=== PATIENT | male | born 1935 | race Caucasian/White ===

== ENCOUNTER 2016-07-09 02:11 | Inpatient (IN) | payer MEDICARE, OTHER ==
[~2016-07-09] VITALS: Ht 167.6 cm; Wt 70.8 kg
[2016-07-09] MEDS ORDERED: SODIUM CHLORIDE 250 ML IV PRN (02:25)
[2016-07-09] MEDS ORDERED: SODIUM CHLORIDE FLUSH 10 ML SYR IV PRN (02:25)
[2016-07-09] MEDS ORDERED: ONDANSETRON 2 MG/ML (Z0FRAN) 2 ML VIAL IV ONE ×2 (02:25→05:15)
[2016-07-09] MEDS ORDERED: SODIUM CHLORIDE FLUSH 3 ML SYR IV PRN (02:25)
--- NOTE | 2016-07-09 02:58 | NUR ---
PRIOR TO ARRIVAL PT WAS C/O RT ELBOW AND WRIST PAIN FROM FALL. PT NOW C/O GENERAL MALAISE AND SORENESS 08/06. PT IS ALERT AND COOPERATIVE- AT TIMES PT SEEMS TO CONTRADICT HIMSELF WHEN ANSWERING QUESTIONS.
--- NOTE | 2016-07-09 03:02 | NUR ---
PT IS WARM TO THE TOUCH.
[2016-07-09 03:29] LABS: ALBUMIN 4.6 g/dL (3.4-5.0); ALKALINE PHOSPHATASE 119 U/L (38-126); ANION GAP 17.9 MEQ/L (3-15); BUN/CREATININE RATIO 18 (10-20); CREATINE KINASE 62 U/L (55-170); MAGNESIUM* 1.4 mg/dL (1.6-2.3)
[2016-07-09 03:39] LABS: BASOPHILS % (AUTO) 0 % (0-2); EOSINOPHILS % (AUTO) 0 % (0-4); LYMPHOCYTES # (AUTO) 0.8 X10^3; MEAN CORPUSCULAR HGB CONC 34.3 g/dL (31.0-37.0); MEAN CORPUSCULAR VOLUME 97 FL (80-100); MEAN PLATELET VOLUME 12.2 FL (6.0-9.5); MONOCYTES # (AUTO) 0.3 X10^3; MONOCYTES % (AUTO) 5 % (3-11); NEUTROPHILS # (AUTO) 5.3 X10^3; NEUTROPHILS % (AUTO) 82 % (51-67); PLATELET COUNT 94 10^3uL (150-450); WHITE BLOOD COUNT 6.41 10^3uL (4.0-11.0)
[2016-07-09 03:43] LABS: MEAN CORPUSCULAR HEMOGLOBIN 33.3 PG (26.0-34.0)
[2016-07-09 03:44] LABS: BILIRUBIN,URINE Negative (Negative); CLARITY,URINE Clear; COLOR,URINE Yellow; GLUCOSE, URINE (UA) Negative (Negative); LEUKOCYTE ESTERASE ,URINE Negative (Negative); UROBILINOGEN,URINE 0.2 mg/dL (0.2-1.0)
[2016-07-09] MEDS ORDERED: LEVOFLOXACIN 500 MG/100 ML IV 100 ML IV ONE (03:50)
[2016-07-09] MEDS ORDERED: ACETAMINOPHEN 500 MG TAB (TYLENOL) PO ONE (03:50)
--- NOTE | 2016-07-09 04:56 | NUR ---
TEMP RECHECKED 103.0. TYLENOL GIVEN EARLIER- WILL CONTINUE TO MONITOR. PT'S DAUGHTER REQUESTING A FLU SWAB- MD GIBSON. FLU SWAB OBTAINED AND SENT.
--- NOTE | 2016-07-09 05:04 | NUR ---
RECHECKED TEMP = 102.0
[2016-07-09] MEDS ORDERED: SODIUM CHLORIDE 250 ML IV SCH (05:15)
[2016-07-09] MEDS ORDERED: IBUPROFEN 200 MG (MOTRIN) TAB PO ONE (05:15)
--- NOTE | 2016-07-09 05:15 | NUR ---
PT VOMITED A SMALL AMOUNT OF LIQUID EMESIS. MADE AWARE. ZOFRAN AND NORMAL SALINE ORDERED.
[2016-07-09] MEDS ORDERED: ONDANSETRON 2 MG/ML (Z0FRAN) 2 ML VIAL ONE (05:19)
[2016-07-09 05:20] LABS: INFLUENZA VIRUS TYPE A ANTIBOD Negative (NEGATIVE); INFLUENZA VIRUS TYPE B ANTIBOD Negative (NEGATIVE)
--- NOTE | 2016-07-09 05:35 | NUR ---
MEDICATIONS ZOFRAN 4MG IV AND NS 250 CC DID NOT SHOW UP ON PYXIS. PULLED MEDICATIONS FROM [facility].
--- NOTE | 2016-07-09 05:36 | NUR ---
RECHECKED TEMP =100.7
--- NOTE | 2016-07-09 05:37 | NUR ---
PT ON SENIOR RESEARCH FELLOW WITH RUNS OF VPC. EKG EARLIER SHOWED PACED VENTRICULAR RHYTHM. PT CONTINUES TO BE ALERT AND DENIES CHEST DISCOMFORT.
--- NOTE | 2016-07-09 05:40 | NUR ---
WILL AMBULATE PATIENT IN 20 MINS.
--- NOTE | 2016-07-09 06:18 | NUR ---
ATTEMPTED TO AMBULATE PATIENT, HOWEVER WHEN HE SAT AT EDGE OF BED HE FELT NAUSEOUS AND WEAK. MD AT BEDSIDE AND DECIDED TO ALLOW PATIENT TO STAY ON CART AND NOT ATTEMPT AMBULATION. PLAN IS TO ADMIT INPATIENT. HOSPITALIST YAO.
[2016-07-09] MEDS ORDERED: NITROGLYCERIN SUBLINGUAL 0.4 MG (NITROQUICK) TABLET SL SCH (06:50)
[2016-07-09] MEDS ORDERED: ONDANSETRON 4 MG (ZOFRAN) ORAL DISSOLVE TAB PO PRN (06:50)
[2016-07-09] MEDS ORDERED: DICLOFENAC 1% GEL (VOLTAREN) 100 GM TUBE TOP PRN (06:50)
[2016-07-09] MEDS ORDERED: PROMETHAZINE HCL INJ 12.5 MG in SODIUM CHLORIDE 25 ML IV PRN (06:50)
[2016-07-09] MEDS ORDERED: POLYETHYLENE GLYCOL 17 GM (MIRALAX) PACKET PO PRN (06:50)
[2016-07-09] MEDS ORDERED: ONDANSETRON 2 MG/ML (Z0FRAN) 2 ML VIAL IV PRN (06:50)
--- NOTE | 2016-07-09 06:50 | NUR ---
Pt admitted to room 310 via cart from ED. Ambulates with 2 assist from cart to bed. Alert/oriented to person, time, place, situation- "falling at home and not feeling right"- although family states he doesn't remember complaining of Rt shoulder and neck pain before falling at home.
[2016-07-09] MEDS ORDERED: SODIUM CHLORIDE FLUSH 10 ML ONE (07:17)
[2016-07-09] MEDS: MAGNESIUM 1 GM/100 ML IVPB 100 ML IV SCH ×2 (07:19→08:26)
[2016-07-09] MEDS ORDERED: NS FLUSH 3 ML PRN IV (07:50)
--- NOTE | 2016-07-09 07:58 | NUR ---
NS@100ml/hr infusing with Magnesium bag 1 of 2 infusing concurrent. Family remains at bedside.
[2016-07-09] MEDS: LEVOTHYROXINE 125 MCG (LEVOTHROID) TABLET PO SCH (08:09)
[2016-07-09] MEDS: PANTOPRAZOLE 40 MG (PROTONIX) TAB PO SCH (08:09)
[2016-07-09] MEDS: meTOprolol TARTRATE 25 MG (LOPRESSOR) TABLET PO SCH ×2 (08:10→20:35)
[2016-07-09] MEDS: OMEGA-3 FATTY ACIDS (FISH OIL) 500 MG CAPSULE PO SCH (08:10)
[2016-07-09] MEDS: GLUCOSAMINE/CHONDROITIN 500MG-400MG CAPSULE PO SCH (08:10)
[2016-07-09] MEDS: ASPIRIN 81 MG PO SCH (08:10)
[2016-07-09] MEDS: CYANOCOBALAMIN 100 MCG PO SCH (08:11)
[2016-07-09] MEDS: ALLOPURINOL 100 MG (ZYLOPRIM) TAB PO SCH (08:11)
[2016-07-09] MEDS: CHOLECALCIFEROL 1000 INT UNITS (VITAMIN D3) TABLET PO SCH (08:11)
[2016-07-09] MEDS: NS FLUSH 3 ML DAILY IV SCH (08:11)
[2016-07-09] MEDS: RIVAROXABAN 10 MG (XARELTO) TABLET PO SCH (08:11)
[2016-07-09 08:19] VITALS: BP 110/64
[2016-07-09 08:24] VITALS: BP 110/64
[2016-07-09] MEDS: MAGNESIUM HYDROXIDE 80MG/ML (MILK OF MAGNESIA) 30 ML UDC PO PRN (09:48)
[2016-07-09] MEDS: DOCUSATE SODIUM 100 MG (COLACE) CAP PO PRN (09:48)
[2016-07-09] MEDS ORDERED: ALBUTEROL 0.083% NEB SOLUTION 2.5 MG/3 ML VIAL INH PRN (10:05)
[2016-07-09 11:24] VITALS: BP 101/61
[2016-07-09] MEDS: predniSONE 5 MG (DELTASONE) TABLET PO SCH (11:25)
[2016-07-09] MEDS: guaiFENesin ER 600 MG (MUCINEX) TAB PO SCH ×2 (11:25→20:34)
[2016-07-09] MEDS: ALBUTEROL/IPRATROPIUM 3MG-0.5MG/3ML (DUONEB) NEB VIAL INH SCH ×2 (14:10→19:14)
--- NOTE | 2016-07-09 14:53 | NUR ---
MED REC COMPLETE--current med list obtained from patient report (patient's supplied written list) and list provided by patient's PCP (Dr. Rios). Completed by Pharm. Darci Riley Candidate 2017. Addendum: 07/09/16 at 1645 by Nette Muro PHARM Correction: patient's daughter supplied written med list, not
[2016-07-09 15:35] VITALS: BP 94/54
[2016-07-09] MEDS: ARTIFICIAL TEARS (REFRESH) OPHTHALMIC DROPS OU PRN ×2 (16:48→20:34)
[2016-07-09] MEDS ORDERED: VANCOMYCIN PHARMACY PROTOCOL IV SCH ×2 (17:25)
[2016-07-09] MEDS ORDERED: VANCOMYCIN 1,000 MG in SODIUM CHLORIDE 250 ML IV ONE (17:25)
--- NOTE | 2016-07-09 17:48 | NUR ---
Vancomycin Dosing: Pharmacy Managed S: Bacteremia O: 80 yo male with blood culture positive for gram positive cocci, Streptococcus species (per PCR) < 24 hours; SCr 1.25 mg/dL, CrCl 42 mL/min, Tmax 100.7 A/P: Vancomycin initiated empirically at 1 gram x 1 dose. Recommend continuing vancomycin at 1250 mg IV daily to achieve therapeutic trough of ~15 mcg/mL. Draw trough prior to 4th dose (07-12-16 at 1730).
[2016-07-09] MEDS: DOXYCYCLINE 100 MG (VIBRAMYCIN) TABLET PO SCH (18:17)
--- NOTE | 2016-07-09 18:30 | NUR ---
Glen is up in bed with fluids infusing into RFA this afternoon. He is alert and oriented. Communicating well and frequently smiles and laughs during interactions. He makes needs known and is able to get up to the bathroom with a walker and SBA. He reports leg weakness with this but tolerates movements well. Blood Cultures positive this afternoon and IV abx begins.
--- NOTE | 2016-07-09 19:10 | NUR ---
report given to Adeola CASTELLANOS and care relinquished
[2016-07-09 19:36] VITALS: BP 103/64
--- NOTE | 2016-07-09 20:25 | NUR ---
Pt. ambulating hallway with aid of walker/gait belt and AQUA AMMONIA OPERATOR stand by assist. Pt. exhibits steady gait; is cheerful and talkative. Vanco nearly infused.
[2016-07-09] MEDS: QUEtiapine 25 MG (SEROquel) TAB IMMEDIATE RELEASE PO SCH (20:35)
[2016-07-09] MEDS ORDERED: LATANOPROST 0.005% OPHTHALMIC SOLN (XALATAN) 2.5 ML BTL OU SCH (21:00)
[2016-07-09] MEDS: ACETAMINOPHEN 325 MG TAB (TYLENOL) PO PRN (23:43)
--- NOTE | 2016-07-09 23:43 | NUR ---
Tylenol 650 mg PO given for temp of 101.7; orally. Pt. has several blankets applied; skin appears dusky in coloration; SATS currently are 94% on room air; resp are unlabored. Pt. denies discomfort.
[2016-07-09 23:45] VITALS: BP 125/67
--- NOTE | 2016-07-10 00:55 | NUR ---
Pt. has been setting tabs/bed alarm off consistently. This nurse asks if pt. sleeps in a recliner at home. Additional recliner brought to room for pt. use. Pt. states, "I can't understand why I can't sleep tonight!" Pt. denies discomfort. Bedside table positioned at the right with H2O; call light in lap; daughter remains in room in recliner. also. Pt.'s room is in close proximity to nurse's station for frequent observation and quick response to alarms.
[2016-07-10 03:50] VITALS: BP 108/79
[2016-07-10] MEDS: ACETAMINOPHEN 325 MG TAB (TYLENOL) PO PRN ×2 (05:25→18:20)
--- NOTE | 2016-07-10 05:25 | NUR ---
Tylenol 650 mg PO given for temp per request of daughter: 99.3. Pt. has slept much better since moving to the recliner. Pt. denies discomfort; remains fatigued. Call light within reach; H2O replenished.
--- NOTE | 2016-07-10 06:07 | NUR ---
Pt. wishes to ambulate; pt. utilizes walker; gait belt attached; DREDGE PIPE INSTALLER assist; daughter also at side.
--- NOTE | 2016-07-10 06:09 | NUR ---
Pt. changes mind; feels unsteady on feet; will wait until after breakfast.
[2016-07-10] MEDS: ARTIFICIAL TEARS (REFRESH) OPHTHALMIC DROPS OU PRN ×2 (06:11→20:40)
[2016-07-10] MEDS: PANTOPRAZOLE 40 MG (PROTONIX) TAB PO SCH (06:11)
[2016-07-10] MEDS: LEVOTHYROXINE 125 MCG (LEVOTHROID) TABLET PO SCH (06:11)
[2016-07-10] MEDS: DOXYCYCLINE 100 MG (VIBRAMYCIN) TABLET PO SCH ×2 (06:11→18:14)
[2016-07-10 06:15] LABS: BASOPHILS % (AUTO) 0 % (0-2); EOSINOPHILS % (AUTO) 0 % (0-4); LYMPHOCYTES # (AUTO) 0.6 X10^3; MEAN CORPUSCULAR HGB CONC 34.2 g/dL (31.0-37.0); MEAN CORPUSCULAR VOLUME 97 FL (80-100); MEAN PLATELET VOLUME 12.5 FL (6.0-9.5); MONOCYTES # (AUTO) 0.2 X10^3; MONOCYTES % (AUTO) 6 % (3-11); NEUTROPHILS # (AUTO) 2.4 X10^3; NEUTROPHILS % (AUTO) 75 % (51-67); PLATELET COUNT 69 10^3uL (150-450); WHITE BLOOD COUNT 3.22 10^3uL (4.0-11.0)
--- NOTE | 2016-07-10 06:15 | NUR ---
Refresh drops applied to eyes bilaterally; PO meds taken without difficulty; pt. resting in recliner/watching tv; tabs attached for safety.
[2016-07-10 06:37] LABS: ANION GAP 15.3 MEQ/L (3-15); MAGNESIUM* 1.9 mg/dL (1.6-2.3); PHOSPHORUS 2.8 mg/dL (2.4-4.9); TOTAL PROTEIN 6.9 g/dL (6.4-8.5)
--- NOTE | 2016-07-10 06:38 | NUR ---
Pt. down to radiology via wheel chair; daughter accompanies for additional assist if needed. Pt. very cheerful; pleasant; smiles.
[2016-07-10] MEDS: ALBUTEROL/IPRATROPIUM 3MG-0.5MG/3ML (DUONEB) NEB VIAL INH SCH ×2 (07:13→20:19)
--- NOTE | 2016-07-10 07:30 | NUR ---
Patient sitting up in recliner upon shift assessment. Alert and oriented X3. Appears lethargic. Reports left ear pain that is described as an ache. Reports it began a few days ago. PRN Zofran provided at this time for c/o nausea. Expresses frustration with current illness and wants to go home. Positive reassurance provided. Remains febrile with oral temp of 101.1. Lung sounds CTAB. Respirations even and non-labored. Updated and patient on plan of care for shift. TABS intact for safety. Will continue to monitor. Addendum: 07/10/16 at 0758 by Hetal Tamez RN WRONG PATIENT CHART. OMIT ENTRY.
--- NOTE | 2016-07-10 07:30 | NUR ---
Patient returns to room via wheelchair from radiology upon shift assessment. Alert and oriented X3. Denies pain, nausea, or SOA. Reports feeling weak. Temperature at this time = 102.0. Patient denies feeling chilled. Dr. Emmanuel notified, new order received. Lung sounds diminished throughout. HR RRR. No edema noted to BLE. Daughter at bedside. Both updated on plan of care for shift including managing fever, antibiotic therapy, and calling for assistance. TABS intact for safety. Call light in reach.
[2016-07-10] MEDS: meTOprolol TARTRATE 25 MG (LOPRESSOR) TABLET PO SCH ×2 (08:06→20:30)
[2016-07-10] MEDS: ASPIRIN 81 MG PO SCH (08:06)
[2016-07-10] MEDS: GLUCOSAMINE/CHONDROITIN 500MG-400MG CAPSULE PO SCH (08:06)
[2016-07-10] MEDS: ALLOPURINOL 100 MG (ZYLOPRIM) TAB PO SCH (08:06)
[2016-07-10] MEDS: IBUPROFEN 800 MG (MOTRIN) TAB PO PRN ×2 (08:06→20:31)
[2016-07-10] MEDS: RIVAROXABAN 10 MG (XARELTO) TABLET PO SCH (08:06)
[2016-07-10] MEDS: guaiFENesin ER 600 MG (MUCINEX) TAB PO SCH ×2 (08:06→20:30)
[2016-07-10] MEDS: CHOLECALCIFEROL 1000 INT UNITS (VITAMIN D3) TABLET PO SCH (08:06)
[2016-07-10] MEDS: OMEGA-3 FATTY ACIDS (FISH OIL) 500 MG CAPSULE PO SCH (08:06)
[2016-07-10] MEDS: CYANOCOBALAMIN 100 MCG PO SCH (08:06)
[2016-07-10] MEDS: NS FLUSH 3 ML DAILY IV SCH (08:07)
[2016-07-10] MEDS: predniSONE 5 MG (DELTASONE) TABLET PO SCH (08:07)
[2016-07-10 08:10] VITALS: BP 112/62
[2016-07-10] MEDS: TIMOLOL 0.5% OU SCH (08:24)
[2016-07-10 08:41] LABS: MEAN CORPUSCULAR HEMOGLOBIN 33.1 PG (26.0-34.0)
[2016-07-10] MEDS ORDERED: SODIUM CHLORIDE 100 ML IV PRN (12:15)
[2016-07-10 15:38] VITALS: BP 162/79
[2016-07-10] MEDS ORDERED: VANCOMYCIN COMPOUNDED BY PHARMACY IV SCH (18:00)
[2016-07-10] MEDS ORDERED: VANCOMYCIN 1250 MG in SODIUM CHLORIDE 250 ML IV SCH (18:00)
[2016-07-10] MEDS: NS FLUSH 10 ML PRN IV (18:14)
--- NOTE | 2016-07-10 18:36 | NUR ---
Fever breaks around 0900 after PRN Motrin. Patient sleeps in long intervals throughout day. Does consume most of full liquid meal trays. Sitting up in chair at this time. IV Vancomycin infusing without difficulty. Reports feeling chilled. PRN Tylenol provided. Temp currently 98.4. TABS intact for safety. Daughter at bedside. Call light in reach.
[2016-07-10 19:58] VITALS: BP 148/77
[2016-07-10] MEDS: QUEtiapine 25 MG (SEROquel) TAB IMMEDIATE RELEASE PO SCH (20:31)
--- NOTE | 2016-07-10 20:35 | NUR ---
Motrin given for shoulder ache. Pt. shivering; warm blankets applied. Pt. afebrile; SATS 94% on room air. Tabs and bed alarm on for safety. H2O and call light within reach.
[2016-07-10] MEDS ORDERED: SERTRALINE 50 MG (ZOLOFT) TABLET ONE (20:53)
[2016-07-10] MEDS ORDERED: SERTRALINE 25 MG ONE (20:54)
--- NOTE | 2016-07-10 20:54 | NUR ---
Pt. usually takes Zoloft 75 mg PO at night; Dr. Emmanuel notified; ok to reinstate Zoloft at HS.
[2016-07-10] MEDS: SERTRALINE 25 MG PO SCH (20:59)
--- NOTE | 2016-07-10 22:30 | NUR ---
Pt. sets off tabs occasionally with repositioning; wore CPAP from home this evening for a short time. "I think I will leave it off for awhile now". Shivering improved; wearing sheet only at this time.
[2016-07-11] VITALS (7 sets, daily range): BP systolic 74–118; BP diastolic 44–72
[2016-07-11] MEDS: DOXYCYCLINE 100 MG (VIBRAMYCIN) TABLET PO SCH (06:19)
[2016-07-11] MEDS: PANTOPRAZOLE 40 MG (PROTONIX) TAB PO SCH (06:19)
[2016-07-11] MEDS: LEVOTHYROXINE 125 MCG (LEVOTHROID) TABLET PO SCH (06:19)
[2016-07-11] MEDS: ARTIFICIAL TEARS (REFRESH) OPHTHALMIC DROPS OU PRN ×3 (06:20→20:31)
--- NOTE | 2016-07-11 06:20 | NUR ---
Pt. takes PO meds without difficulty; states he slept very well last night; "But I sure did sweat for awhile!" Pt. required additional blankets at times; remained afebrile. Pt. exhibits somewhat dusky coloring this morning; resp are even and unlabored on room air; SATS are 93%. Call light and H2O within reach. Daughter at bedside in recliner.
[2016-07-11 06:33] LABS: BASOPHILS % (AUTO) 0 % (0-2); EOSINOPHILS % (AUTO) 0 % (0-4); LYMPHOCYTES # (AUTO) 0.5 X10^3; MEAN CORPUSCULAR HGB CONC 33.3 g/dL (31.0-37.0); MEAN PLATELET VOLUME 12.6 FL (6.0-9.5); MONOCYTES # (AUTO) 0.1 X10^3; MONOCYTES % (AUTO) 4 % (3-11); NEUTROPHILS # (AUTO) 2.9 X10^3; NEUTROPHILS % (AUTO) 82 % (51-67); PLATELET COUNT 58 10^3uL (150-450); WHITE BLOOD COUNT 3.56 10^3uL (4.0-11.0)
[2016-07-11 07:05] LABS: ALBUMIN 3.4 g/dL (3.4-5.0); ANION GAP 15.3 MEQ/L (3-15); MAGNESIUM* 2.1 mg/dL (1.6-2.3); PHOSPHORUS 4.1 mg/dL (2.4-4.9); TOTAL PROTEIN 6.4 g/dL (6.4-8.5)
[2016-07-11] MEDS: ALBUTEROL/IPRATROPIUM 3MG-0.5MG/3ML (DUONEB) NEB VIAL INH SCH ×2 (07:25→19:31)
[2016-07-11 08:01] LABS: MEAN CORPUSCULAR HEMOGLOBIN 32.9 PG (26.0-34.0); MEAN CORPUSCULAR VOLUME 99 FL (80-100)
[2016-07-11] MEDS: CHOLECALCIFEROL 1000 INT UNITS (VITAMIN D3) TABLET PO SCH (08:23)
[2016-07-11] MEDS: GLUCOSAMINE/CHONDROITIN 500MG-400MG CAPSULE PO SCH (08:24)
[2016-07-11] MEDS: RIVAROXABAN 10 MG (XARELTO) TABLET PO SCH (08:24)
[2016-07-11] MEDS: CYANOCOBALAMIN 100 MCG PO SCH (08:24)
[2016-07-11] MEDS: ALLOPURINOL 100 MG (ZYLOPRIM) TAB PO SCH (08:24)
[2016-07-11] MEDS: OMEGA-3 FATTY ACIDS (FISH OIL) 500 MG CAPSULE PO SCH (08:24)
[2016-07-11] MEDS: ASPIRIN 81 MG PO SCH (08:24)
[2016-07-11] MEDS: meTOprolol TARTRATE 25 MG (LOPRESSOR) TABLET PO SCH ×2 (08:24→20:21)
[2016-07-11] MEDS: guaiFENesin ER 600 MG (MUCINEX) TAB PO SCH ×2 (08:25→20:22)
[2016-07-11] MEDS: NS FLUSH 3 ML DAILY IV SCH (08:25)
[2016-07-11] MEDS: ACETAMINOPHEN 325 MG TAB (TYLENOL) PO PRN (08:25)
[2016-07-11] MEDS: predniSONE 5 MG (DELTASONE) TABLET PO SCH (08:25)
[2016-07-11] MEDS: TIMOLOL 0.5% OU SCH (08:27)
[2016-07-11] MEDS ORDERED: PHENOL THROAT SPRAY (CHLORASEPTIC) 177 ML BTL MM PRN (11:40)
[2016-07-11] MEDS: ACETAMINOPHEN 325 MG TAB (TYLENOL) PO SCH ×3 (15:06→23:58)
--- NOTE | 2016-07-11 18:13 | NUR ---
Patient remains a-febrile this afternoon. Rests in short intervals throughout day. Denies chills but does report sore throat. Chloraseptic spray provided. Remains on roomair. Daughter at bedside. Call light in reach.
[2016-07-11] MEDS: QUEtiapine 25 MG (SEROquel) TAB IMMEDIATE RELEASE PO SCH (20:22)
[2016-07-11] MEDS: SERTRALINE 25 MG PO SCH (20:22)
[2016-07-11] MEDS: PIPERACILLIN/TAZOBACTAM 3.375 GM in NS 100 ML IV SCH (20:22)
[2016-07-11] MEDS ORDERED: PIPERACILLIN/TAZOBACTAM 4.5 GM in SODIUM CHLORIDE 100 ML IV SCH (22:00)
[2016-07-12] VITALS (8 sets, daily range): BP systolic 97–151; BP diastolic 61–83
--- NOTE | 2016-07-12 00:43 | NUR ---
Pt ambulates around the unit with assist of PEST CONTROL OPERATOR, gait belt, and walker.
[2016-07-12 06:01] LABS: BASOPHILS % (AUTO) 0 % (0-2); EOSINOPHILS % (AUTO) 0 % (0-4); LYMPHOCYTES # (AUTO) 0.4 X10^3; MEAN CORPUSCULAR HGB CONC 34.2 g/dL (31.0-37.0); MEAN CORPUSCULAR VOLUME 97 FL (80-100); MEAN PLATELET VOLUME 12.6 FL (6.0-9.5); MONOCYTES # (AUTO) 0.2 X10^3; MONOCYTES % (AUTO) 8 % (3-11); NEUTROPHILS # (AUTO) 2.2 X10^3; NEUTROPHILS % (AUTO) 79 % (51-67); PLATELET COUNT 55 10^3uL (150-450)
[2016-07-12 06:09] LABS: ALBUMIN 3.3 g/dL (3.4-5.0); MAGNESIUM* 2.1 mg/dL (1.6-2.3); PHOSPHORUS 3.9 mg/dL (2.4-4.9)
[2016-07-12 06:14] LABS: MEAN CORPUSCULAR HEMOGLOBIN 33.3 PG (26.0-34.0)
[2016-07-12] MEDS: ACETAMINOPHEN 325 MG TAB (TYLENOL) PO SCH (06:17)
[2016-07-12] MEDS: LEVOTHYROXINE 125 MCG (LEVOTHROID) TABLET PO SCH (06:17)
[2016-07-12] MEDS: PANTOPRAZOLE 40 MG (PROTONIX) TAB PO SCH (06:17)
[2016-07-12 06:18] LABS: WHITE BLOOD COUNT 2.78 10^3uL (4.0-11.0)
--- NOTE | 2016-07-12 06:18 | NUR ---
Pt rests well. Denies pain. Resp even and non labored on RA. SL intact.
[2016-07-12] MEDS: ALBUTEROL/IPRATROPIUM 3MG-0.5MG/3ML (DUONEB) NEB VIAL INH SCH ×2 (07:19→21:35)
[2016-07-12] MEDS: TIMOLOL 0.5% OU SCH (08:21)
[2016-07-12] MEDS: ALLOPURINOL 100 MG (ZYLOPRIM) TAB PO SCH (08:22)
[2016-07-12] MEDS: CHOLECALCIFEROL 1000 INT UNITS (VITAMIN D3) TABLET PO SCH (08:22)
[2016-07-12] MEDS: predniSONE 5 MG (DELTASONE) TABLET PO SCH (08:22)
[2016-07-12] MEDS: guaiFENesin ER 600 MG (MUCINEX) TAB PO SCH ×2 (08:22→21:16)
[2016-07-12] MEDS: ASPIRIN 81 MG PO SCH (08:22)
[2016-07-12] MEDS: RIVAROXABAN 10 MG (XARELTO) TABLET PO SCH (08:23)
[2016-07-12] MEDS: CYANOCOBALAMIN 100 MCG PO SCH (08:23)
[2016-07-12] MEDS: OMEGA-3 FATTY ACIDS (FISH OIL) 500 MG CAPSULE PO SCH (08:23)
[2016-07-12] MEDS: GLUCOSAMINE/CHONDROITIN 500MG-400MG CAPSULE PO SCH (08:23)
[2016-07-12] MEDS: PIPERACILLIN/TAZOBACTAM 3.375 GM in NS 100 ML IV SCH (08:24)
[2016-07-12] MEDS: NS FLUSH 3 ML DAILY IV SCH (08:24)
[2016-07-12] MEDS: meTOprolol TARTRATE 25 MG (LOPRESSOR) TABLET PO SCH ×2 (09:00→21:16)
--- NOTE | 2016-07-12 14:08 | NUR ---
MULTIDISCIPLINARY MTG/DR. SALEEM: Pt. admitted with a viral syndrome. Cultures grew strep but may be a contaminate. A new blood culture was drawn today. Pt. antibiotics were de-escalated. Pt. also has pancytopenia and still having fevers. Pt. is clinically feeling better. Pt. did well with PT and had good balance. Pt. will possibly be discharged on the . Pt. may benefit from skilled care upon discharge.
--- NOTE | 2016-07-12 14:25 | NUR ---
NUTRITION ASSESSMENT Level 1 Patient: Glen Solorzano Age/Sex: 81/M Date Screened: 07-12-16 Weight: 165.6#/75.3 kg Height: 66 inches Primary Diagnosis: bacteremia Diet Order: regular Relevant labs: glucose 97 Food allergies: N Nutrition Assessment Criteria Age over 80: 4 points Body Mass Index (BMI) under 19: N Admission Screening Indicates Risk? N Moderate/High Risk Diagnosis: N TPN or PPN: N NPO or clear liquid diet: N Serum Glucose <70 or >180: N Hgb A1c >6.7: N/A Total: 4 points Risk Screen: __ Patient at low nutritional risk based on available data; reevaluate in 5-7 days _X_ Patient at moderate nutritional risk based on available data; reevaluate in 3-5 days __ Patient at high nutritional risk; complete Nutrition Assessment within 48 hours of admission. Comments: Weight has been stable; last weight 1 year ago was 161#. Pt. has history of possible dysphagia and has seen speech therapy for a hoarse voice, but no confirmed aspiration. Appetite is improving, eating 100% regular diet. Will reassess as documented above.
[2016-07-12] MEDS: MAGNESIUM HYDROXIDE 80MG/ML (MILK OF MAGNESIA) 30 ML UDC PO PRN (17:48)
[2016-07-12] MEDS: DOCUSATE SODIUM 100 MG (COLACE) CAP PO PRN (17:48)
--- NOTE | 2016-07-12 18:32 | NUR ---
Patient up in recliner visiting with family at this time. Denies any pain. Pt was given PRN Colace and MOM for reports of constipation, did have results this evening. Pt states that he feels much better today. Denies any needs or concerns at this time.
[2016-07-12] MEDS ORDERED: cefTRIAXone SODIUM 1,000 MG in SODIUM CHLORIDE 50 ML IV SCH (21:00)
--- NOTE | 2016-07-12 21:15 | NUR ---
Pt laying in bed visiting with daughter. Iv running without redness or edema. Pt has no c/o at this time.
[2016-07-12] MEDS: SERTRALINE 25 MG PO SCH (21:16)
[2016-07-12] MEDS: NS FLUSH 10 ML PRN IV (21:16)
[2016-07-12] MEDS: QUEtiapine 25 MG (SEROquel) TAB IMMEDIATE RELEASE PO SCH (21:17)
[2016-07-12] MEDS: ARTIFICIAL TEARS (REFRESH) OPHTHALMIC DROPS OU PRN (21:29)
[2016-07-12] MEDS: ACETAMINOPHEN 325 MG TAB (TYLENOL) PO PRN (23:16)
--- NOTE | 2016-07-12 23:19 | NUR ---
Pt states he feels "flighty." Daughter agrees and states she thinks he may have a temperature. Temp checked - 98.6. Other VSS; see vital sign intervention. PRN tylenol provided per pt request. Will continue to monitor.
[2016-07-13 04:30] VITALS: BP_SYST 159; BP_SYST 98; BP_DIAS 58; BP_DIAS 84
[2016-07-13] MEDS: ARTIFICIAL TEARS (REFRESH) OPHTHALMIC DROPS OU PRN ×2 (05:48→20:18)
[2016-07-13] MEDS: LEVOTHYROXINE 125 MCG (LEVOTHROID) TABLET PO SCH (05:48)
[2016-07-13] MEDS: PANTOPRAZOLE 40 MG (PROTONIX) TAB PO SCH (05:48)
--- NOTE | 2016-07-13 05:48 | NUR ---
Morning meds given early d/t pt request so that he could "try to get a little bit of rest before breakfast." Lab work drawn. Pt has no further c/o since midnight. Up occasionally to use the bathroom. SL intact. Resp even and non labored on RA.
[2016-07-13 06:11] LABS: MEAN CORPUSCULAR HGB CONC 33.3 g/dL (31.0-37.0); PLATELET COUNT 57 10^3uL (150-450); WHITE BLOOD COUNT 2.05 10^3uL (4.0-11.0)
[2016-07-13 06:14] LABS: MEAN CORPUSCULAR HEMOGLOBIN 32.7 PG (26.0-34.0); MEAN CORPUSCULAR VOLUME 98 FL (80-100)
[2016-07-13 06:38] LABS: ALBUMIN 3.5 g/dL (3.4-5.0); ANION GAP 14.1 MEQ/L (3-15); PHOSPHORUS 3.3 mg/dL (2.4-4.9)
[2016-07-13 06:45] LABS: ANISOCYTOSIS SLIGHT; BAND NEUTROPHILS % 10 % (0-6); EOSINOPHILS % 1 % (0-4); LYMPHOCYTES # 0.5 #; MICROCYTOSIS SLIGHT; MONOCYTES # 0.2 #; MONOCYTES % 8 % (3-11); RBC MORPH SEE REFERENCE (NORMAL); SEGMENTED NEUTROPHILS % 54 % (51-67); SMUDGE CELLS 3+; TOTAL CELLS COUNTED 100
[2016-07-13 07:27] VITALS: BP 116/69
--- NOTE | 2016-07-13 07:30 | NUR ---
Patient sitting up in bed upon shift assessment. Alert and oriented X3 but does forget to call for assistance with ambulation. Denies pain, chills, sore throat, or other distress. States "i'm feeling pretty good this morning". Lung sounds CTAB. HR RRR. No edema noted to BLE. Daughter at bedside. Both updated on plan of care for shift. TABS and yellow gown intact for safety and high fall risk. Call light in reach.
[2016-07-13] MEDS: ALBUTEROL/IPRATROPIUM 3MG-0.5MG/3ML (DUONEB) NEB VIAL INH SCH ×2 (07:44→22:26)
[2016-07-13] MEDS: NS FLUSH 3 ML DAILY IV SCH (08:16)
[2016-07-13] MEDS: TIMOLOL 0.5% OU SCH (08:16)
[2016-07-13] MEDS: CYANOCOBALAMIN 100 MCG PO SCH (08:16)
[2016-07-13] MEDS: RIVAROXABAN 10 MG (XARELTO) TABLET PO SCH (08:16)
[2016-07-13] MEDS: OMEGA-3 FATTY ACIDS (FISH OIL) 500 MG CAPSULE PO SCH (08:17)
[2016-07-13] MEDS: ALLOPURINOL 100 MG (ZYLOPRIM) TAB PO SCH (08:17)
[2016-07-13] MEDS: GLUCOSAMINE/CHONDROITIN 500MG-400MG CAPSULE PO SCH (08:17)
[2016-07-13] MEDS: CHOLECALCIFEROL 1000 INT UNITS (VITAMIN D3) TABLET PO SCH (08:17)
[2016-07-13] MEDS: predniSONE 5 MG (DELTASONE) TABLET PO SCH (08:17)
[2016-07-13] MEDS: guaiFENesin ER 600 MG (MUCINEX) TAB PO SCH ×2 (08:17→20:17)
[2016-07-13] MEDS: meTOprolol TARTRATE 25 MG (LOPRESSOR) TABLET PO SCH ×2 (08:17→17:50)
--- NOTE | 2016-07-13 10:38 | NUR ---
Ex OXI - 1015- pt @ rest on room air - SpO2 95% Hr 70's w activity room air - SpO2 down to 82% at 25 feet Hr mid 90's activity O2 applied @ 2 lpm, SpO2 up to 88-89% activity w O2 increased to 3 lpm. SpO2 up to 94-95% and sustains ofr ~ 500 ft @ rest w O2 @ 3 SpO2 = 99% decreased to room air @ rest room air SpO2 94-95%
[2016-07-13 11:19] VITALS: BP 112/70
--- NOTE | 2016-07-13 11:22 | NUR ---
Patient to nuclear medicine via wheelchair.
--- NOTE | 2016-07-13 13:19 | NUR ---
Patient to nuclear medicine via wheelchair.
[2016-07-13 15:25] VITALS: BP 144/75
--- NOTE | 2016-07-13 17:58 | NUR ---
Patient sitting up in recliner consuming supper. Denies pain or distress. Does report exertion with exercise throughout day but oxygen recovers quickly when resting. Remains afebrile throughout day shift. Daughter at bedside. Call light in reach.
[2016-07-13 19:58] VITALS: BP 127/63
[2016-07-13] MEDS: QUEtiapine 25 MG (SEROquel) TAB IMMEDIATE RELEASE PO SCH (20:17)
[2016-07-13] MEDS: SERTRALINE 25 MG PO SCH (20:18)
[2016-07-13] MEDS: cefTRIAXone SODIUM 1,000 MG in SODIUM CHLORIDE 50 ML IV SCH (20:18)
--- NOTE | 2016-07-13 21:19 | NUR ---
Daughter concerned that pt is having hallucinations. She states that he is seeing bugs on the [place], cars in the room, people building things. Pt is a bit more confused this shift when compared to other nights. He tells this nurse that he is outside, working. Reoriented pt to hospital and situation. Pt states "oh yes, we're inside, but working on the building." Will continue to monitor pt closely. Addendum: 07/13/16 at 2 by Brianna Nunes RN Will relay information to doctor.
--- NOTE | 2016-07-13 22:29 | NUR ---
Pt found lying in bed on RA, SPO2 98%, HR 80, RR 16 with clear BS before and after Duoneb via SVN/MASK which was tolerated well.
[2016-07-14 00:10] VITALS: BP 126/67
[2016-07-14 04:25] VITALS: BP 133/56
[2016-07-14 06:05] LABS: BASOPHILS % (AUTO) 0 % (0-2); EOSINOPHILS % (AUTO) 0 % (0-4); LYMPHOCYTES # (AUTO) 0.7 X10^3; MEAN CORPUSCULAR HGB CONC 32.8 g/dL (31.0-37.0); MEAN PLATELET VOLUME 12.5 FL (6.0-9.5); MONOCYTES # (AUTO) 0.2 X10^3; MONOCYTES % (AUTO) 7 % (3-11); NEUTROPHILS % (AUTO) 69 % (51-67); PLATELET COUNT 81 10^3uL (150-450); WHITE BLOOD COUNT 2.84 10^3uL (4.0-11.0)
[2016-07-14 06:09] LABS: MEAN CORPUSCULAR HEMOGLOBIN 32.7 PG (26.0-34.0); MEAN CORPUSCULAR VOLUME 100 FL (80-100)
[2016-07-14] MEDS: LEVOTHYROXINE 125 MCG (LEVOTHROID) TABLET PO SCH (06:26)
[2016-07-14] MEDS: PANTOPRAZOLE 40 MG (PROTONIX) TAB PO SCH (06:26)
--- NOTE | 2016-07-14 06:28 | NUR ---
Pt rests in short intervals throughout the night. Pt frequently repositions himself and attempts to get out of bed. SL intact. Resp even, slightly labored on RA. Daughter at bedside. No needs at this time.
[2016-07-14 06:31] LABS: ALBUMIN 3.9 g/dL (3.4-5.0); ANION GAP 17.6 MEQ/L (3-15); PHOSPHORUS 4.1 mg/dL (2.4-4.9)
[2016-07-14 08:01] VITALS: BP 116/69
[2016-07-14] MEDS: ALBUTEROL/IPRATROPIUM 3MG-0.5MG/3ML (DUONEB) NEB VIAL INH SCH ×2 (08:32→20:05)
--- NOTE | 2016-07-14 08:35 | NUR ---
Pt is laying in bed resting comfortably, 1 visitor present. Pt is on room air, SPO2 96%.
[2016-07-14] MEDS: GLUCOSAMINE/CHONDROITIN 500MG-400MG CAPSULE PO SCH (09:26)
[2016-07-14] MEDS: guaiFENesin ER 600 MG (MUCINEX) TAB PO SCH ×2 (09:26→20:25)
[2016-07-14] MEDS: CHOLECALCIFEROL 1000 INT UNITS (VITAMIN D3) TABLET PO SCH (09:26)
[2016-07-14] MEDS: CYANOCOBALAMIN 100 MCG PO SCH (09:26)
[2016-07-14] MEDS: RIVAROXABAN 10 MG (XARELTO) TABLET PO SCH (09:26)
[2016-07-14] MEDS: TIMOLOL 0.5% OU SCH (09:27)
[2016-07-14] MEDS: meTOprolol TARTRATE 25 MG (LOPRESSOR) TABLET PO SCH ×2 (09:27→17:50)
[2016-07-14] MEDS: predniSONE 5 MG (DELTASONE) TABLET PO SCH (09:27)
[2016-07-14] MEDS: ALLOPURINOL 100 MG (ZYLOPRIM) TAB PO SCH (09:27)
[2016-07-14] MEDS: NS FLUSH 3 ML DAILY IV SCH (09:27)
[2016-07-14] MEDS: OMEGA-3 FATTY ACIDS (FISH OIL) 500 MG CAPSULE PO SCH (09:27)
[2016-07-14] MEDS: ACETAMINOPHEN 325 MG TAB (TYLENOL) PO PRN (09:28)
[2016-07-14 11:21] VITALS: BP 106/56
[2016-07-14] MEDS ORDERED: FUROSEMIDE 100 MG/10 ML (LASIX) VIAL IV ONE ×2 (11:25→13:22)
--- NOTE | 2016-07-14 12:37 | NUR ---
Ernesto ABG on right radial at this time, pt on room air. Results reported to , ordered to place pt on 2L NC continuous at this time due to pt being hypoxic. RN also notified.
[2016-07-14 12:54] LABS: ABG OXYGEN SATURATION 93 % (95-98); ABG PCO2 35 mmHg (35-45); ABG PH 7.43 (7.35-7.45); ABG PO2 64 mmHg (80-105)
[2016-07-14] MEDS: NS FLUSH 10 ML PRN IV (13:40)
[2016-07-14 16:00] VITALS: BP 122/68
--- NOTE | 2016-07-14 18:30 | NUR ---
Earlier in the shift, the patient complained of a general feeling of being "ill" today but was not specific about his symptoms. Later around supper time, he reported feeling much improvement. He has cooperated with O2 at 2 liters since this morning and had a significant urine output of 1600cc's since 1330 dose of IV lasix.
[2016-07-14 20:04] VITALS: BP 119/70
--- NOTE | 2016-07-14 20:08 | NUR ---
Pt found lying in bed, SPO2 100% on 2 l/min NC. O2 ordered for hypoxia (PAO2) from ABG at 2 l/min continuously. HR 76, RR 14 and non labored with clear BS before and after Duoneb via SVN/MASK. Pt does not wish to wear his CPAP tonight, but I let him know if he wants to I will assist him. IS x 4 x 1750 ml with good technique.
[2016-07-14] MEDS: SERTRALINE 25 MG PO SCH (20:25)
[2016-07-14] MEDS: QUEtiapine 25 MG (SEROquel) TAB IMMEDIATE RELEASE PO SCH (20:25)
--- NOTE | 2016-07-14 20:25 | NUR ---
Pt. takes all PO meds without difficulty; Rocephin infusing at right forearm site; pt. very conversational and pleasant; daughter at bedside; call light and H2O within reach.
[2016-07-14] MEDS: cefTRIAXone SODIUM 1,000 MG in SODIUM CHLORIDE 50 ML IV SCH (20:26)
--- NOTE | 2016-07-14 20:35 | NUR ---
Pt. provided with jello x 2 for snack; "This hits the spot!"
[2016-07-14] MEDS: ARTIFICIAL TEARS (REFRESH) OPHTHALMIC DROPS OU PRN (22:50)
[2016-07-15 00:40] VITALS: BP 120/63
[2016-07-15 04:26] VITALS: BP 111/62
[2016-07-15 06:35] LABS: MEAN CORPUSCULAR HGB CONC 33.4 g/dL (31.0-37.0); MEAN CORPUSCULAR VOLUME 97 FL (80-100); PLATELET COUNT 96 10^3uL (150-450); WHITE BLOOD COUNT 2.42 10^3uL (4.0-11.0)
[2016-07-15 06:36] LABS: MEAN CORPUSCULAR HEMOGLOBIN 32.5 PG (26.0-34.0)
[2016-07-15] MEDS: ARTIFICIAL TEARS (REFRESH) OPHTHALMIC DROPS OU PRN ×3 (06:42→21:51)
[2016-07-15] MEDS: PANTOPRAZOLE 40 MG (PROTONIX) TAB PO SCH (06:42)
[2016-07-15] MEDS: LEVOTHYROXINE 125 MCG (LEVOTHROID) TABLET PO SCH (06:42)
[2016-07-15 06:45] LABS: BAND NEUTROPHILS % 3 % (0-6); EOSINOPHILS % 0 % (0-4); LYMPHOCYTES # 0.5 #; MONOCYTES # 0.1 #; MONOCYTES % 7 % (3-11); RBC MORPH NORMAL (NORMAL); SEGMENTED NEUTROPHILS % 68 % (51-67); TOTAL CELLS COUNTED 100
--- NOTE | 2016-07-15 06:45 | NUR ---
Pt. awakens from a sound sleep to take PO meds; pt. states he felt like he slept well last night. O2 applied continually at 2L via NC; resp are even and unlabored. Safety measures in place as pt. forgetful even with his daughter at bedside. Pt. very pleasantly confused. Pt. denies discomfort currently. Call light and H2O within reach.
[2016-07-15 06:58] LABS: ERYTHROCYTE SEDIMENTATION RT* 96 mm/hr (0-19)
[2016-07-15 07:09] LABS: ALBUMIN 4.2 g/dL (3.4-5.0); CALCULATED IONIZED CALCIUM 4.1 mg/dL (3.8-4.6); MAGNESIUM* 1.5 mg/dL (1.6-2.3); TOTAL PROTEIN 7.5 g/dL (6.4-8.5)
--- NOTE | 2016-07-15 08:00 | NUR ---
Asleep - O2 per nc 2 L
[2016-07-15 08:14] VITALS: BP 132/78
[2016-07-15] MEDS: ALBUTEROL/IPRATROPIUM 3MG-0.5MG/3ML (DUONEB) NEB VIAL INH SCH ×2 (08:55→19:45)
[2016-07-15] MEDS: NS FLUSH 3 ML DAILY IV SCH (09:00)
[2016-07-15] MEDS: ALLOPURINOL 100 MG (ZYLOPRIM) TAB PO SCH (09:35)
[2016-07-15] MEDS: meTOprolol TARTRATE 25 MG (LOPRESSOR) TABLET PO SCH ×2 (09:36→17:55)
[2016-07-15] MEDS: predniSONE 5 MG (DELTASONE) TABLET PO SCH (09:36)
[2016-07-15] MEDS: CHOLECALCIFEROL 1000 INT UNITS (VITAMIN D3) TABLET PO SCH (09:36)
[2016-07-15] MEDS: guaiFENesin ER 600 MG (MUCINEX) TAB PO SCH ×2 (09:36→21:05)
[2016-07-15] MEDS: GLUCOSAMINE/CHONDROITIN 500MG-400MG CAPSULE PO SCH (09:36)
[2016-07-15] MEDS: CYANOCOBALAMIN 100 MCG PO SCH (09:36)
[2016-07-15] MEDS: TIMOLOL 0.5% OU SCH (09:37)
[2016-07-15] MEDS: FUROSEMIDE 100 MG/10 ML (LASIX) VIAL IV SCH (09:37)
[2016-07-15] MEDS: NS FLUSH 10 ML PRN IV ×2 (09:43→21:08)
[2016-07-15] MEDS: OMEGA-3 FATTY ACIDS (FISH OIL) 500 MG CAPSULE PO SCH (09:56)
[2016-07-15] MEDS: RIVAROXABAN 10 MG (XARELTO) TABLET PO SCH (09:56)
[2016-07-15 11:37] VITALS: BP 121/73
[2016-07-15 16:33] VITALS: BP 115/68
[2016-07-15] MEDS: ACETAMINOPHEN 325 MG TAB (TYLENOL) PO PRN (16:52)
--- NOTE | 2016-07-15 17:05 | NUR ---
Pt c/o pain, Tylenol tab 2 given per request. Pt also given eye drops per request for dry eyes. Pt is back in bed.
--- NOTE | 2016-07-15 19:48 | NUR ---
Pt found lying in bed on 2 l/min NC, SPO2 98%, HR 78, RR 15 and non labored with clear and diminished BS before and after Duoneb via SVN/MASK which was tolerated well. Pr continues to use IS on his own.
[2016-07-15 20:00] VITALS: BP 118/65
[2016-07-15] MEDS: cefTRIAXone SODIUM 1,000 MG in SODIUM CHLORIDE 50 ML IV SCH (21:05)
[2016-07-15] MEDS: QUEtiapine 25 MG (SEROquel) TAB IMMEDIATE RELEASE PO SCH (21:06)
[2016-07-15] MEDS: SERTRALINE 25 MG PO SCH (21:06)
[2016-07-16] VITALS (7 sets, daily range): BP systolic 106–128; BP diastolic 62–76
[2016-07-16] MEDS: LEVOTHYROXINE 125 MCG (LEVOTHROID) TABLET PO SCH (06:27)
[2016-07-16] MEDS: PANTOPRAZOLE 40 MG (PROTONIX) TAB PO SCH (06:27)
[2016-07-16] MEDS: meTOprolol TARTRATE 25 MG (LOPRESSOR) TABLET PO SCH ×2 (08:13→19:28)
[2016-07-16] MEDS: FUROSEMIDE 100 MG/10 ML (LASIX) VIAL IV SCH (08:14)
[2016-07-16] MEDS: NS FLUSH 3 ML DAILY IV SCH (08:14)
[2016-07-16] MEDS: TIMOLOL 0.5% OU SCH (08:15)
[2016-07-16] MEDS: predniSONE 5 MG (DELTASONE) TABLET PO SCH (08:15)
[2016-07-16] MEDS: OMEGA-3 FATTY ACIDS (FISH OIL) 500 MG CAPSULE PO SCH (08:15)
[2016-07-16] MEDS: GLUCOSAMINE/CHONDROITIN 500MG-400MG CAPSULE PO SCH (08:15)
[2016-07-16] MEDS: guaiFENesin ER 600 MG (MUCINEX) TAB PO SCH ×2 (08:16→20:32)
[2016-07-16] MEDS: CHOLECALCIFEROL 1000 INT UNITS (VITAMIN D3) TABLET PO SCH (08:16)
[2016-07-16] MEDS: CYANOCOBALAMIN 100 MCG PO SCH (08:16)
[2016-07-16] MEDS: ALLOPURINOL 100 MG (ZYLOPRIM) TAB PO SCH (08:31)
[2016-07-16] MEDS: RIVAROXABAN 10 MG (XARELTO) TABLET PO SCH (08:34)
[2016-07-16] MEDS: ALBUTEROL/IPRATROPIUM 3MG-0.5MG/3ML (DUONEB) NEB VIAL INH SCH ×2 (08:47→20:44)
--- NOTE | 2016-07-16 08:50 | NUR ---
End Expiratory Wheeze before treatment with clearing after. SpO2 98-99% on 2lpm Nasal Cannula.
[2016-07-16] MEDS: MAGNESIUM 1 GM/100 ML IVPB 100 ML IV SCH ×2 (15:25→15:27)
--- NOTE | 2016-07-16 15:56 | NUR ---
Visited with Pt. and daughter regarding skilled care. Pt. was agreeable to SW sending information to [facility] to review for acceptance. [facility]
[2016-07-16] MEDS: SERTRALINE 25 MG PO SCH (20:31)
[2016-07-16] MEDS: QUEtiapine 25 MG (SEROquel) TAB IMMEDIATE RELEASE PO SCH (20:31)
[2016-07-16] MEDS: cefTRIAXone SODIUM 1,000 MG in SODIUM CHLORIDE 50 ML IV SCH (20:32)
--- NOTE | 2016-07-16 20:47 | NUR ---
Pt found sitting in his chair on 2 l/min NC, SPO2 100%, HR 84, RR 16 and non labored with wheezes in bilateral lower lobes. Duoneb given via SVN/MASK tolerated well. Air movement slightly improved post Tx. Pt continues to use IS on his own.
[2016-07-17 04:04] VITALS: BP 113/58
[2016-07-17] MEDS: PANTOPRAZOLE 40 MG (PROTONIX) TAB PO SCH (06:13)
[2016-07-17] MEDS: LEVOTHYROXINE 125 MCG (LEVOTHROID) TABLET PO SCH (06:13)
--- NOTE | 2016-07-17 06:30 | NUR ---
Patient rests in bed throughout night. Alert and oriented. No needs at this time.
[2016-07-17 08:01] VITALS: BP 126/71
[2016-07-17] MEDS: meTOprolol TARTRATE 25 MG (LOPRESSOR) TABLET PO SCH ×2 (08:36→17:48)
[2016-07-17] MEDS: predniSONE 5 MG (DELTASONE) TABLET PO SCH (08:37)
[2016-07-17] MEDS: GLUCOSAMINE/CHONDROITIN 500MG-400MG CAPSULE PO SCH (08:38)
[2016-07-17] MEDS: CYANOCOBALAMIN 100 MCG PO SCH (08:38)
[2016-07-17] MEDS: FUROSEMIDE 100 MG/10 ML (LASIX) VIAL IV SCH (08:38)
[2016-07-17] MEDS: RIVAROXABAN 10 MG (XARELTO) TABLET PO SCH (08:38)
[2016-07-17] MEDS: guaiFENesin ER 600 MG (MUCINEX) TAB PO SCH ×2 (08:39→21:14)
[2016-07-17] MEDS: ALLOPURINOL 100 MG (ZYLOPRIM) TAB PO SCH (08:39)
[2016-07-17] MEDS: OMEGA-3 FATTY ACIDS (FISH OIL) 500 MG CAPSULE PO SCH (08:39)
[2016-07-17] MEDS: CHOLECALCIFEROL 1000 INT UNITS (VITAMIN D3) TABLET PO SCH (08:39)
[2016-07-17] MEDS: NS FLUSH 3 ML DAILY IV SCH (08:40)
[2016-07-17] MEDS: TIMOLOL 0.5% OU SCH (08:53)
--- NOTE | 2016-07-17 08:56 | NUR ---
Pt up to chair for bfst. Takes AM meds without difficulty. Addendum: 07/17/16 at 0857 by Yazmin Santamaria RN Remains on [facility].
--- NOTE | 2016-07-17 09:54 | NUR ---
Worked with PT this AM- PT reports that he ambulated multiple laps on RA- Sats remained at 97%-98%, HR 105. See PT progress notes for further information
[2016-07-17] MEDS: ALBUTEROL/IPRATROPIUM 3MG-0.5MG/3ML (DUONEB) NEB VIAL INH SCH ×2 (10:20→20:24)
[2016-07-17 15:44] VITALS: BP 106/66
--- NOTE | 2016-07-17 15:45 | NUR ---
Pt resting in bed, daughter at bedside. Denies needs. Call light within reach.
--- NOTE | 2016-07-17 15:52 | NUR ---
Pt. still on 2l nc cont., O2 sat's 100%. BS clear, NPC.
[2016-07-17] MEDS: ARTIFICIAL TEARS (REFRESH) OPHTHALMIC DROPS OU PRN (17:50)
--- NOTE | 2016-07-17 18:15 | NUR ---
Pt sitting up in chair for supper meal. Remains on 2L nc. Denies SOA, difficulties. Denies needs at this time. Daughter at bedside.
--- NOTE | 2016-07-17 20:27 | NUR ---
Pt found lying in bed on 2 l/min NC, SPO2 99%, HR 76, RR 14 and non labored with clear and diminished BS throughout all lung long before and after Duoneb via SVN/MASK. Pt continues to use IS on his own.
[2016-07-17] MEDS: QUEtiapine 25 MG (SEROquel) TAB IMMEDIATE RELEASE PO SCH (21:14)
[2016-07-17] MEDS: cefTRIAXone SODIUM 1,000 MG in SODIUM CHLORIDE 50 ML IV SCH (21:14)
[2016-07-17] MEDS: SERTRALINE 25 MG PO SCH (21:14)
[2016-07-18 00:31] VITALS: BP 125/75
[2016-07-18] MEDS: LEVOTHYROXINE 125 MCG (LEVOTHROID) TABLET PO SCH (06:11)
[2016-07-18] MEDS: PANTOPRAZOLE 40 MG (PROTONIX) TAB PO SCH (06:11)
[2016-07-18 06:24] LABS: BASOPHILS % (AUTO) 0 % (0-2); EOSINOPHILS % (AUTO) 0 % (0-4); LYMPHOCYTES # (AUTO) 0.7 X10^3; MEAN CORPUSCULAR VOLUME 96 FL (80-100); MEAN PLATELET VOLUME 12.9 FL (6.0-9.5); MONOCYTES # (AUTO) 0.3 X10^3; MONOCYTES % (AUTO) 9 % (3-11); NEUTROPHILS # (AUTO) 2.5 X10^3; NEUTROPHILS % (AUTO) 69 % (51-67); PLATELET COUNT 127 10^3uL (150-450); WHITE BLOOD COUNT 3.64 10^3uL (4.0-11.0)
--- NOTE | 2016-07-18 06:32 | NUR ---
Patient rests in bed throughout night without needs. Up to bathroom with stand by assistance. Has been alert and oriented all shift, pleasant with cares. No needs at this time.
[2016-07-18 06:52] LABS: ANION GAP 17.7 MEQ/L (3-15)
[2016-07-18 07:05] LABS: MEAN CORPUSCULAR HEMOGLOBIN 32.4 PG (26.0-34.0)
[2016-07-18 08:06] VITALS: BP 125/75
[2016-07-18] MEDS: FUROSEMIDE 100 MG/10 ML (LASIX) VIAL IV SCH (08:38)
[2016-07-18] MEDS: OMEGA-3 FATTY ACIDS (FISH OIL) 500 MG CAPSULE PO SCH (08:39)
[2016-07-18] MEDS: GLUCOSAMINE/CHONDROITIN 500MG-400MG CAPSULE PO SCH (08:39)
[2016-07-18] MEDS: RIVAROXABAN 10 MG (XARELTO) TABLET PO SCH (08:39)
[2016-07-18] MEDS: CYANOCOBALAMIN 100 MCG PO SCH (08:39)
[2016-07-18] MEDS: CHOLECALCIFEROL 1000 INT UNITS (VITAMIN D3) TABLET PO SCH (08:39)
[2016-07-18] MEDS: meTOprolol TARTRATE 25 MG (LOPRESSOR) TABLET PO SCH ×2 (08:39→17:29)
[2016-07-18] MEDS: guaiFENesin ER 600 MG (MUCINEX) TAB PO SCH ×2 (08:39→20:11)
[2016-07-18] MEDS: predniSONE 5 MG (DELTASONE) TABLET PO SCH (08:39)
[2016-07-18] MEDS: ALLOPURINOL 100 MG (ZYLOPRIM) TAB PO SCH (08:39)
[2016-07-18] MEDS: TIMOLOL 0.5% OU SCH (08:40)
[2016-07-18] MEDS: NS FLUSH 3 ML DAILY IV SCH (08:47)
--- NOTE | 2016-07-18 09:04 | NUR ---
Pt awake- finished with breakfast- ate 100%. Takes AM meds without difficulty. IV SL intact, flushes without difficulty. Tabs alarm in place Addendum: 07/18/16 at 0941 by Yazmin Santamaria RN Remains on 2L nc. resp even, nonlab. Skin warm, dry.
[2016-07-18] MEDS: ALBUTEROL/IPRATROPIUM 3MG-0.5MG/3ML (DUONEB) NEB VIAL INH SCH ×2 (09:17→19:28)
[2016-07-18 15:55] VITALS: BP 122/68
--- NOTE | 2016-07-18 17:51 | NUR ---
Pt has had visitors all shift- Pt ambulated halls with Sandra Brooks CNA x2 full laps. Yellow gown, tabs alarm for fall preventions/safety. Call light in reach. Remains on 2L nc.
[2016-07-18] MEDS: cefTRIAXone SODIUM 1,000 MG in SODIUM CHLORIDE 50 ML IV SCH (20:11)
[2016-07-18] MEDS: QUEtiapine 25 MG (SEROquel) TAB IMMEDIATE RELEASE PO SCH (20:11)
[2016-07-18] MEDS: SERTRALINE 25 MG PO SCH (20:11)
[2016-07-18 23:48] VITALS: BP 107/52
[2016-07-19] MEDS: PANTOPRAZOLE 40 MG (PROTONIX) TAB PO SCH (06:17)
[2016-07-19] MEDS: LEVOTHYROXINE 125 MCG (LEVOTHROID) TABLET PO SCH (06:17)
--- NOTE | 2016-07-19 06:17 | NUR ---
Patient rests in bed throughout night without needs. Up to bathroom with standby assistance. States this AM that he thinks he "might get to go home today" and seems very excited about this. No needs at this time.
[2016-07-19] MEDS: ALBUTEROL/IPRATROPIUM 3MG-0.5MG/3ML (DUONEB) NEB VIAL INH SCH (07:43)
[2016-07-19 07:45] VITALS: BP 121/66
[2016-07-19] MEDS: NS FLUSH 3 ML DAILY IV SCH (09:00)
[2016-07-19] MEDS: ALLOPURINOL 100 MG (ZYLOPRIM) TAB PO SCH (09:24)
[2016-07-19] MEDS: CHOLECALCIFEROL 1000 INT UNITS (VITAMIN D3) TABLET PO SCH (09:24)
[2016-07-19] MEDS: OMEGA-3 FATTY ACIDS (FISH OIL) 500 MG CAPSULE PO SCH (09:24)
[2016-07-19] MEDS: CYANOCOBALAMIN 100 MCG PO SCH (09:24)
[2016-07-19] MEDS: predniSONE 5 MG (DELTASONE) TABLET PO SCH (09:24)
[2016-07-19] MEDS: guaiFENesin ER 600 MG (MUCINEX) TAB PO SCH (09:24)
[2016-07-19] MEDS: meTOprolol TARTRATE 25 MG (LOPRESSOR) TABLET PO SCH (09:24)
[2016-07-19] MEDS: TIMOLOL 0.5% OU SCH (09:24)
[2016-07-19] MEDS: GLUCOSAMINE/CHONDROITIN 500MG-400MG CAPSULE PO SCH (09:24)
[2016-07-19] MEDS: RIVAROXABAN 10 MG (XARELTO) TABLET PO SCH (09:24)
[2016-07-19] MEDS: FUROSEMIDE 100 MG/10 ML (LASIX) VIAL IV SCH (09:25)
[2016-07-19] MEDS: NS FLUSH 10 ML PRN IV (09:25)
[2016-07-19] MEDS ORDERED: AMOXICILLIN 500 MG (AMOXIL) CAPSULE PO SCH (09:44)
--- NOTE | 2016-07-19 11:28 | NUR ---
Visited with Pt. and daughter regarding Pt. discharge today. Informed them Pt. has been accepted to [facility] for skilled care. Pt. will be going to [address] upon discharge. Pt. daughter would like to transport but Pt. is supposed to be on continuous oxygen. After they visit with Dr. Emmanuel they will decide if she will transport or [facility] will transport.
--- NOTE | 2016-07-19 12:34 | NUR ---
MULTIDISCIPLINARY MTG/DR. LOPEZ: Pt. will be discharged today to [facility] for skilled care. Pt. will be changed to amoxicillin today. Pt. is to be on 2L oxygen continuous. SW will discuss Pt. discharge with Pt. and his daughter. No discharge needs identified at this time.
[2016-07-19] MEDS ORDERED: DICLOFENAC 1% GEL (VOLTAREN) 100 GM TUBE TOP SCH (13:00)
[2016-07-19] MEDS ORDERED: FUROSEMIDE 20 MG (LASIX) TAB PO SCH (14:00)
[2016-07-19] MEDS ORDERED: FUROSEMIDE 80 MG (LASIX) TABLET PO SCH (14:00)
--- NOTE | 2016-07-19 14:45 | NUR ---
Discussed the patient's follow up appointments with his daughter
[2016-07-19 15:49] VITALS: BP 118/75
--- NOTE | 2016-07-19 15:53 | NUR ---
[facility]
== END 2016-07-19 15:53 | DRG 191 ==
LOC: ED 02:12 → MED/SURG 05:58
PROVIDERS: ADMIT Internal Medicine; ATTEND Internal Medicine
DX: J44.1 Chronic obstructive pulmonary disease with (acute) exacerbation (principal); R78.81 Bacteremia; N17.9 Acute kidney failure, unspecified; D61.818 Other pancytopenia; I27.2 Other secondary pulmonary hypertension; K52.9 Noninfective gastroenteritis and colitis, unspecified; E86.0 Dehydration; R79.1 Abnormal coagulation profile; I48.91 Unspecified atrial fibrillation; I25.10 Atherosclerotic heart disease of native coronary artery without angina pectoris; I10 Essential (primary) hypertension; Z91.81 History of falling; Z95.0 Presence of cardiac pacemaker; Z95.5 Presence of coronary angioplasty implant and graft
CPT/HCPCS: 36415; 70450; 71010; 71020; 72125; 73562; 74000; 74176; 78582; 80048; 80053; 80069; 80076; 81003; 82550; 82553; 82803; 83605; 83735; 83880; 84484; 84550; 85025; 85045; 85610; 85652; 85730; 86140; 87040; 87077; 87150; 87186; 87205; 87486; 87502; 87507; 87581; 87633; 87798; 88184; 88185; 93005; 93010; 93306; 94640; 94760; 94761; 96361; 96365; 96375; 96376; 99285

== ENCOUNTER → 2016-08-04 | Outpatient (CLI) | payer MEDICARE, OTHER ==
[~2016-08-04] MED LIST: ROPIVACAINE 1% 10 MG/ML (NAROPIN) 10 ML AMPUL ONE; SODIUM CHLORIDE VIAL (PF) 10 ML IV ONE; methylPREDNISolone 80 MG/ML (DEPO MEDROL) VIAL IM ONE
== END ==
LOC: PMC 10:55
PROVIDERS: ATTEND Family Medicine
PROC: 3E0U33Z Introduction of Anti-inflammatory into Joints, Percutaneous Approach (ICD-10-PCS; principal; 2016-08-04)
PROC: 3E0U3BZ Introduction of Anesthetic Agent into Joints, Percutaneous Approach (ICD-10-PCS; 2016-08-04)
DX: M25.552 Pain in left hip (principal); M48.07 Spinal stenosis, lumbosacral region

== ENCOUNTER → 2016-08-09 | Outpatient (CLI) | payer MEDICARE, OTHER | LOC: LAB 09:09 | PROVIDERS: ATTEND Family Medicine | DX: R78.81 Bacteremia (principal) | CPT/HCPCS: 36415; 87040 ==

== ENCOUNTER → 2016-08-12 | Outpatient (CLI) | payer MEDICARE, OTHER | LOC: LAB 14:48 | PROVIDERS: ATTEND Family Medicine | DX: M25.552 Pain in left hip (principal); M16.12 Unilateral primary osteoarthritis, left hip | CPT/HCPCS: 73502 ==

== ENCOUNTER → 2016-08-31 | Outpatient (CLI) | payer MEDICARE, OTHER ==
[2016-08-31 12:15] LABS: MEAN CORPUSCULAR HGB CONC 34.1 g/dL (31.0-37.0); MEAN PLATELET VOLUME 10.9 FL (6.0-9.5); PLATELET COUNT 96 10^3uL (150-450); WHITE BLOOD COUNT 3.53 10^3uL (4.0-11.0)
[2016-08-31 12:23] LABS: MEAN CORPUSCULAR HEMOGLOBIN 34.1 PG (26.0-34.0); MEAN CORPUSCULAR VOLUME 100 FL (80-100)
[2016-08-31 12:34] LABS: BAND NEUTROPHILS % 0 % (0-6); EOSINOPHILS % 1 % (0-4); LYMPHOCYTES # 0.6 #; MONOCYTES # 0.2 #; MONOCYTES % 5 % (3-11); RBC MORPH NORMAL (NORMAL); SEGMENTED NEUTROPHILS % 78 % (51-67); TOTAL CELLS COUNTED 100
[2016-08-31 13:04] LABS: ALBUMIN 4.5 g/dL (3.4-5.0); ANION GAP 18.1 MEQ/L (3-15); CALCULATED IONIZED CALCIUM 4.1 mg/dL (3.8-4.6); TOTAL PROTEIN 7.6 g/dL (6.4-8.5)
[2016-08-31 18:50] LABS: IRON 95 ug/dL (65-175); UNBOUND IRON CONTENT 257 ug/dl (126-382)
[2016-08-31 20:02] LABS: VITAMIN B 12 >2000 pg/mL (213-816)
== END ==
LOC: LAB 11:43
PROVIDERS: ATTEND Internal Medicine Hematology & Oncology
DX: D61.818 Other pancytopenia (principal); R53.83 Other fatigue
CPT/HCPCS: 36415; 80053; 82607; 82728; 82746; 83010; 83540; 83550; 83615; 85007; 85027

== ENCOUNTER → 2016-09-01 | Outpatient (CLI) | payer MEDICARE, OTHER ==
[~2016-09-01] MED LIST changes: +BUPIVACAINE 0.25% (MARCAINE) 30 ML VIAL ONE; -ROPIVACAINE 1% 10 MG/ML (NAROPIN) 10 ML AMPUL ONE; -SODIUM CHLORIDE VIAL (PF) 10 ML IV ONE
== END ==
LOC: RAD 10:07
PROVIDERS: ATTEND Orthopaedic Surgery
DX: Z51.81 Encounter for therapeutic drug level monitoring (principal); Z79.01 Long term (current) use of anticoagulants; M16.12 Unilateral primary osteoarthritis, left hip
CPT/HCPCS: 20610; 36415; 77002; 85610; 85730; J1040; Q9967

== ENCOUNTER → 2016-10-20 | Outpatient (CLI) | payer MEDICARE, OTHER ==
[~2016-10-20] MED LIST changes: +AC325T PO; +ALLO100T; +ALLO100T PO; +ALPR0.5T PO; +AMOX500C5 PO; +APIX5TAB PO; +ARTHRITIS; +ASPI-586 PO; +ASPI-860 PO; +ATN50T; -BUPIVACAINE 0.25% (MARCAINE) 30 ML VIAL ONE; +CA C1TAB79 PO; +CALC200T5 PO; +CHOL100092 PO; +CYAN100T3 PO; +DICL100G13 TOP; +FRSM20T PO; +FURO-125 PO; +FURO20TA4 PO; +GBPN300C PO; +GFN600TCR PO; +GLUC-113 PO; +GLUC1CAP34 PO; +HYDR-3811 PO; +KRIL500C PO; +LATA2.5D5 OP; +LEVO100T11 PO; +LEVO125T6 PO; +LEVO500T16 PO; +LIFI1DRO OP; +LTN005OP2 OU; +MELO-249; +MELO-249 PO; +METO25TA60 PO; +MINO100C40; +NFIPRATRNS NS; +NFIPRATRNS NSEACH; +NTR.4SL SL; +OMEG1CAP61 PO; +OMEP20CA12 PO; +POTA10TA; +PRED20TA PO; +PRED5TAB PO; +QUET25TA31 PO; +RANI150T11 PO; +RIVA20TA PO; +SERT50TA PO; +SERT50TA9 PO; +SILD100T PO; +SIMV80TA2; +TEST1.25 TD; +TML5OP2.5 OU; +VIT1CAPS8 PO; +VITA150T PO; +VITA1TAB17 PO; +VITA1TAB78; +[UNRECOGNIZED DRUG - OTHER]; -methylPREDNISolone 80 MG/ML (DEPO MEDROL) VIAL IM ONE; +vision formula
== END ==
LOC: RT 12:56
PROVIDERS: ATTEND Internal Medicine Sleep Medicine
DX: R05 Cough (principal); Z87.891 Personal history of nicotine dependence
CPT/HCPCS: 94060; 94726; 94729

== ENCOUNTER 2016-11-11 10:51 | Emergency (ER) | payer MEDICARE, OTHER ==
[~2016-11-11] VITALS: Ht 167.6 cm; Wt 73.0 kg
--- NOTE | 2016-11-11 10:56 | NUR ---
DENIES ANY NAUSEA, DIZZINESS, TINNITUS,DIPLOPIA, CHANGES IN SMELL OR TASTE. CL
--- OUTSIDE RECORDS SUMMARY | 2016-11-11 10:57 | XMS REPORT | Continuity of Care Document ---
Author Author [facility] Organization [facility] Address Unknown Phone Unavailable Care Team Providers Care Nail Expert Name Role Phone Tommy Rios MD PCP [phone] Insurance Providers Payer Name Policy Number Subscriber Name Relationship Medicare A And B [id number] Glen Solorzano 18 Self / Same As Patient [employer] [id number] Glen Solorzano 17 Self / Same As Patient Problems Medical Problems Problem Onset Date Status Swallowing problem 04/03/2013 Resolved Hip pain, left Unknown Active Medications Medication Dose Route Sig Days/Qty Instructions Order Date Discontinued Date Status Potassium Chloride 04/03/13 Active Levothyroxine Sodium 04/03/13 Active Atenolol 04/03/13 Active Minocycline Hcl 04/03/13 Active Vitamin D3/Menaquinone 7 04/03/13 Active Meloxicam 04/03/13 Active Furosemide 04/03/13 Active Allopurinol 04/03/13 Active Simvastatin 04/03/13 Active Krill Oil 04/03/13 Active Alprazolam 0.5 Mg ORAL q 8 hrs as needed. 10 Qty 04/03/13 Active Hydrocodone Bit/Acetaminophen 1-2 Tab ORAL Q 4-6 hrs prn PRN MODERATE PAIN 20 Qty 07/11/14 Active Prednisone 20 Mg ORAL TWICE A DAY 10 Qty 07/11/14 Active Social History No social history. Hospital Discharge Instructions No hospital discharge instructions. Plan of Care Discharge Date 07/11/14 6:22pm Instructions/Education Provided Osteoarthritis (ED) Prescriptions See Medications Section Functional Status No functional status results. Allergies, Adverse Reactions, Alerts Allergen Type Severity Reaction Status Last Updated No Known Drug Allergies Active 04/03/13 Immunizations No immunization records. Vital Signs Acute Vital Signs Vital Response Date/Time Temperature (Fahrenheit) 99.4 Pulse 74 bpm Respirations 18 Height 5 ft 6 in Weight 160 lb Body Mass Index 25.8 kg/m^2 Results Test Source Date Result Interp. Ref. Range Comments Absolute Band Neutrophils January 23, 2014 8:30am 0.1 # Absolute Neutrophil April 03, 2013 7:17am 0.0 # Alanine Aminotransferase (ALT/SGPT) June 24, 2014 2:53pm 36 U/L N 30 -65 Albumin June 24, 2014 2:53pm 4.6 G/DL N 3.4-5.0 Albumin/Globulin Ratio June 24, 2014 2:53pm 1.533 N 1.1-1.8 Alkaline Phosphatase June 24, 2014 2:53pm 110 U/L N 38-126 Anion Gap June 24, 2014 2:53pm 17.0 MEQ/L H 3-15 Anisocytosis April 03, 2013 7:17am Slight Aspartate Amino Transf (AST/SGOT) June 24, 2014 2:53pm 34 U/L N 15- 37 B-Type Natriuretic Peptide January 04, 2014 2:38pm 399 PG/ML H 0-100 BUN/Creatinine Ratio June 24, 2014 2:53pm 23 H 10-20 Band Neutrophils % January 23, 2014 8:30am 4 % N 0-6 Basophils # (Auto) June 24, 2014 2:53pm 0.0 10^3uL Basophils # (Manual) April 03, 2013 7:17am 0.0 # Basophils % (Manual) January 23, 2014 8:30am 0 % N 0-2 Basophils (%) (Auto) June 24, 2014 2:53pm 0 % N 0-2 Blood Morphology Comment January 23, 2014 8:30am Normal NORMAL Blood Urea Nitrogen June 24, 2014 2:53pm 29 MG/DL H 7-18 Calcium Level June 24, 2014 2:53pm 9.6 MG/DL N 8.8-10.8 Calcium/Ionized Calcium Ratio June 24, 2014 2:53pm 4.1 mg/dL N 3.8- 4.6 Calculated Osmolality June 24, 2014 2:53pm 283 MOSM/L N 280-300 Carbon Dioxide Level June 24, 2014 2:53pm 33 MMOL/L H 22-29 Chloride Level June 24, 2014 2:53pm 99 mmol/L N 98-108 Creatinine June 24, 2014 2:53pm 1.28 mg/dL N 0.8-1.5 Differential Total Cells Counted January 23, 2014 8:30am 100 Eosinophils # January 23, 2014 8:30am 0.0 # Eosinophils # (Auto) June 24, 2014 2:53pm 0.0 10^3uL Eosinophils % (Manual) January 23, 2014 8:30am 0 % N 0-4 Eosinophils (%) (Auto) June 24, 2014 2:53pm 0 % N 0-4 Erythrocyte Sedimentation Rate April 19, 2013 2:21pm 11 mm/hr N 0-19 Estimat Glomerular Filtration Rate June 24, 2014 2:53pm 65.6 Estimated GFR (Non- June 24, 2014 2:53pm 54.2 Free Thyroxine April 03, 2013 7:30am 0.8 ng/dL 0.7-1.5 Glucose Level June 24, 2014 2:53pm 91 mg/dL N 70-110 Hematocrit June 24, 2014 2:53pm 39.50 % N 39.00-50.00 Hemoglobin June 24, 2014 2:53pm 13.8 g/dL N 13.5-17.0 Lactate Dehydrogenase January 03, 2012 4:40pm 570 U/L N 313-618 Lymphocytes # January 23, 2014 8:30am 0.6 # Lymphocytes # (Auto) June 24, 2014 2:53pm 0.6 X10^3 Lymphocytes % (Manual) January 23, 2014 8:30am 29 % N 20-46 Lymphocytes (%) (Auto) June 24, 2014 2:53pm 16 % L 20-46 Macrocytosis April 03, 2013 7:17am Moderate Mean Corpuscular Hemoglobin June 24, 2014 2:53pm 36.2 PG H 26.0- 34.0 Mean Corpuscular Hemoglobin Concent June 24, 2014 2:53pm 34.9 g/dL N 31.0-37.0 Mean Corpuscular Volume June 24, 2014 2:53pm 104 FL H 80-100 Mean Platelet Volume June 24, 2014 2:53pm 12.2 FL H 6.0-9.5 Metamyelocytes % January 23, 2014 8:30am 0 % N 0-1 Monocytes # January 23, 2014 8:30am 0.2 # Monocytes # (Auto) June 24, 2014 2:53pm 0.2 X10^3 Monocytes % (Manual) January 23, 2014 8:30am 10 % N 3-11 Monocytes (%) (Auto) June 24, 2014 2:53pm 6 % N 3-11 Neutrophils # January 23, 2014 8:30am 1.3 # Neutrophils # (Auto) June 24, 2014 2:53pm 3.1 X10^3 Neutrophils (%) (Auto) June 24, 2014 2:53pm 78 % H 51-67 Platelet Count June 24, 2014 2:53pm 102 10^3uL L 150-450 Potassium Level June 24, 2014 2:53pm 5.3 mmol/L H 3.5-5.1 Red Blood Count June 24, 2014 2:53pm 3.81 10^6uL L 4.50-5.50 Red Cell Distribution Width June 24, 2014 2:53pm 13.3 % N 11.8-15.6 Segmented Neutrophils % January 23, 2014 8:30am 57 % N 51-67 Sodium Level June 24, 2014 2:53pm 144 MMOL/L N 135-150 Testosterone Level April 24, 2014 3:35pm 421 ng/dL 221-716 Thyroid Stimulating Hormone (TSH) June 04, 2014 12:16pm 11.30 UIU/ML DH 0.46-4.68 Total Bilirubin June 24, 2014 2:53pm 1.2 MG/DL H 0.1-1.0 Total Creatine Kinase April 19, 2013 2:21pm 205 U/L H 55-170 Total Protein June 24, 2014 2:53pm 7.6 G/DL N 6.4-8.5 Urine Bacteria April 24, 2014 3:35pm None seen /HPF Urine Bilirubin June 04, 2014 12:16pm Negative Negative Urine Blood June 04, 2014 12:16pm Negative Negative Urine Clarity June 04, 2014 12:16pm Clear Urine Collection Type June 04, 2014 12:16pm Clean catch Urine Color June 04, 2014 12:16pm Light yellow Urine Glucose (UA) June 04, 2014 12:16pm Negative Negative Urine Hyaline Casts April 24, 2014 3:35pm 1+ /LPF Urine Ketones June 04, 2014 12:16pm Negative Negative Urine Leukocyte Esterase June 04, 2014 12:16pm Negative Negative Urine Mucus January 04, 2014 2:38pm 1+ Urine Nitrite June 04, 2014 12:16pm Negative Negative Urine Protein June 04, 2014 12:16pm Negative Negative Urine RBC April 24, 2014 3:35pm 0-2 /HPF Urine Specific [place] June 04, 2014 12:16pm 1.015 1.005-1.030 Urine Squamous Epithelial Cells April 24, 2014 3:35pm 0-2 /LPF Urine Urobilinogen June 04, 2014 12:16pm 0.2 mg/dL 0.2-1.0 Urine WBC April 24, 2014 3:35pm None seen /HPF Urine pH June 04, 2014 12:16pm 6.5 5.0 - 8.0 Volume Urine Centrifuged April 24, 2014 3:35pm 10 ml White Blood Count June 24, 2014 2:53pm 4.04 10^3uL N 4.0-11.0 Procedures Procedure Status Date Provider(s) COMPREHEN METABOLIC PANEL completed 06/24/14 COMPLETE CBC W/AUTO DIFF WBC completed 06/24/14 ROUTINE VENIPUNCTURE completed 06/24/14 Encounters Encounter Location Date/Time Registered Emergency Room [facility] 07/11/14 4:21pm Registered Clinic [facility] 06/24/14 2:50pm
--- OUTSIDE RECORDS SUMMARY | 2016-11-11 10:57 | XMS REPORT | Continuity of Care Document ---
Author Author [facility] Organization [facility] Address Unknown Phone Unavailable Care Team Providers Care Windscreen Fitter Name Role Phone Tommy Rios MD PCP [phone] Insurance Providers Payer Name Policy Number Subscriber Name Relationship Medicare A And B [id number] Glen Solorzano 17 Self / Same As Patient [employer] [id number] Glen Solorzano 17 Self / Same As [...] 24, 2014 3:35pm 0-2 /HPF Urine Specific [place] June 04, 2014 12:16pm 1.015 1.005-1.030 Urine [...] Encounters Encounter Location Date/Time Registered Emergency Room [facility] 07/11/14 4:21pm Registered Clinic [facility] 06/24/14 2:50pm
[2016-11-11] MEDS ORDERED: LATA2.5D5 OP (11:44)
[2016-11-11] MEDS ORDERED: BUDE0.5A5 IH (11:45)
[2016-11-11 11:55] LABS: BILIRUBIN,URINE Negative (Negative); GLUCOSE, URINE (UA) Negative (Negative); LEUKOCYTE ESTERASE, URINE Negative (Negative); PH,URINE 5.5 (5.0 - 8.0); UROBILINOGEN,URINE 0.2 mg/dL (0.2-1.0)
--- NOTE | 2016-11-11 11:55 | NUR ---
When patient was brought back from CT, tech asked him if he we had put the BP cuff on him or the finger probe and patient responded, "NO". I went in and asked patient if he remembered having the BP cuff on andn finger probe and he responded, "NO". I told patient that we put it on him when he first arrived and patient stated, "Oh you did? I don't remember that" Reported to Dr. Blanchard
[2016-11-11 11:58] LABS: BASOPHILS % (AUTO) 0 % (0-2); EOSINOPHILS % (AUTO) 0 % (0-4); LYMPHOCYTES # (AUTO) 0.9 X10^3; MEAN CORPUSCULAR HGB CONC 32.5 g/dL (31.0-37.0); MEAN PLATELET VOLUME 12.6 FL (6.0-9.5); MONOCYTES # (AUTO) 0.3 X10^3; MONOCYTES % (AUTO) 7 % (3-11); NEUTROPHILS # (AUTO) 2.9 X10^3; NEUTROPHILS % (AUTO) 69 % (51-67); PLATELET COUNT 122 10^3uL (150-450); WHITE BLOOD COUNT 4.23 10^3uL (4.0-11.0)
[2016-11-11 12:00] LABS: CLARITY,URINE Slightly Cloudy; COLOR,URINE Dark Yellow
--- NOTE | 2016-11-11 12:03 | Diagnostic Imaging Report ---
PROCEDURE: CT head without contrast. TECHNIQUE: Multiple contiguous axial images were obtained through the brain without the use of intravenous contrast. INDICATION: Weakness Comparison: CT head of 04/11/14 Findings: No hyperdense hemorrhage or space-occupying mass. No hydrocephalus or midline shift. Symmetric prominence of the ventricles and cortical sulci is compatible with age-appropriate atrophy. No isolated lobar atrophy. No territorial loss of lopez-white matter differentiation to indicate acute/subacute infarct. Stable mild periventricular white matter hypoattenuation which is likely due to chronic microvascular ischemic change. The mastoid air cells are clear. Paranasal sinuses are normal. No focal osseous abnormality of the calvarium. Impression: No acute intracranial process. Dictated by: Dictated on workstation # [id number]
[2016-11-11 12:04] LABS: ALBUMIN 4.9 g/dL (3.4-5.0); ANION GAP 18.1 MEQ/L (3-15); CALCULATED IONIZED CALCIUM 3.8 mg/dL (3.8-4.6); TOTAL PROTEIN 8.6 g/dL (6.4-8.5)
--- NOTE | 2016-11-11 12:05 | NUR ---
Family reported that patient was suppose to see Dr. Sanchez on [facility] today d/t he had seen Dr. Gutierrez for a work up for a back surgery he is scheduled for, Dr Gutierrez was unable to feel a pulse at all in the right leg. Patient had a sono done on 11/03/16 to see if a pulse could be found. Patient is to see Dr. Sanchez for the results. Patient has bruising to left later hip and leg from a fall on the or night. He fell down approximately 12 stairs. Patient denies losing consciousness, family not convinced that he remembers. He also has several scabbed areas on forearms from fall.
[2016-11-11 12:24] LABS: MEAN CORPUSCULAR VOLUME 99 FL (80-100)
--- NOTE | 2016-11-11 12:34 | NUR ---
FAMILY AT BEDSIDE. CL
[2016-11-11 12:58] VITALS: BP 145/94
== END 2016-11-11 13:00 | disposition home or self-care (01) ==
LOC: ED 10:53
DX: R41.0 Disorientation, unspecified (principal); R41.82 Altered mental status, unspecified; I48.91 Unspecified atrial fibrillation; I10 Essential (primary) hypertension
CPT/HCPCS: 36415; 70450; 80053; 81003; 85025; 85610; 93005; 93010; 99284; 99285

== ENCOUNTER → 2016-11-18 | Outpatient (CLI) | payer MEDICARE, OTHER ==
[~2016-11-18] MED LIST changes: +BUDE0.5A5 IH
[2016-11-18 11:40] LABS: BASOPHILS % (AUTO) 0 % (0-2); EOSINOPHILS % (AUTO) 0 % (0-4); LYMPHOCYTES # (AUTO) 0.8 X10^3; MEAN CORPUSCULAR HEMOGLOBIN 32.4 PG (26.0-34.0); MEAN CORPUSCULAR HGB CONC 33.3 g/dL (31.0-37.0); MEAN CORPUSCULAR VOLUME 97 FL (80-100); MEAN PLATELET VOLUME 11.6 FL (6.0-9.5); MONOCYTES # (AUTO) 0.2 X10^3; MONOCYTES % (AUTO) 5 % (3-11); NEUTROPHILS # (AUTO) 2.5 X10^3; NEUTROPHILS % (AUTO) 70 % (51-67); PLATELET COUNT 96 10^3uL (150-450); WHITE BLOOD COUNT 3.52 10^3uL (4.0-11.0)
[2016-11-18 12:06] LABS: ALBUMIN 4.2 g/dL (3.4-5.0); ANION GAP 15.3 MEQ/L (3-15); CALCULATED IONIZED CALCIUM 4.1 mg/dL (3.8-4.6); TOTAL PROTEIN 7.1 g/dL (6.4-8.5)
[2016-11-18 12:10] LABS: BILIRUBIN,URINE Negative (Negative); CLARITY,URINE Clear; COLOR,URINE Yellow; GLUCOSE, URINE (UA) Negative (Negative); LEUKOCYTE ESTERASE ,URINE Negative (Negative); PH,URINE 5.5 (5.0 - 8.0); UROBILINOGEN,URINE 0.2 mg/dL (0.2-1.0)
== END ==
LOC: LAB 10:59
PROVIDERS: ATTEND Family Medicine
DX: Z51.81 Encounter for therapeutic drug level monitoring (principal); Z79.01 Long term (current) use of anticoagulants; M48.06 Spinal stenosis, lumbar region; M54.16 Radiculopathy, lumbar region; M1A.9XX0 Chronic gout, unspecified, without tophus (tophi); L40.8 Other psoriasis; M05.79 Rheumatoid arthritis with rheumatoid factor of multiple sites without organ or systems involvement
CPT/HCPCS: 36415; 80048; 80053; 81003; 84550; 85025; 85610; 85652; 85730; 86140